=== PATIENT | male | born 1930 | race Caucasian/White ===

== ENCOUNTER 2017-07-03 17:00 | Emergency (ER) | payer MEDICARE ==
[2017-07-03 18:13] LABS: ABS Basophils 0 10^3/ul (0-0.2); ABS Eosinophils 0 10^3/ul (0-0.6); ABS Lymphocytes 2.1 10^3/ul (1.0-4.8); ABS Monocytes 0.5 10^3/ul (0-0.8); ABS Neutrophils 4.7 10^3/ul (1.5-7.7); ABS Nucleated RBC 0 10^3/ul; Eosinophil % 0.6 % (0-6); Hematocrit 33 % (42-52); Hemoglobin 11.2 g/dl (14.0-18.0); Lymphocyte % 28.3 % (25-47); Mean Corpuscular HGB Conc 34 g/dl (31-36); Mean Corpuscular Hemoglobin 29 pg (27-31); Mean Corpuscular Volume 84 fL (80-94); Mean Platelet Volume 8.1 um3 (7.4-10.4); Nucleated Red Blood Cells % 0; Platelet Count 185 10^3/ul (150-450); Red Blood Count 3.87 10^6/ul (4.0-5.4); Red Cell Distribution Width 15 % (10.5-15); White Blood Count 7.5 10^3/ul (3.5-10.8)
--- NOTE | 2017-07-03 18:27 | RAD ---
HISTORY: Shortness of breath COMPARISONS: July 26, 2015 VIEWS: 1: frontal portable view of the chest at 6:05 PM FINDINGS: LINES AND TUBES: A left-sided AICD pacemaker is noted. CARDIOMEDIASTINAL SILHOUETTE: The aorta is tortuous. The cardiomediastinal silhouette is otherwise normal for portable technique. PLEURA: The costophrenic angles are sharp. No pleural abnormalities are noted. LUNG PARENCHYMA: The lungs are clear. ABDOMEN: The upper abdomen is clear. There is no subphrenic gas. BONES AND SOFT TISSUES: The patient is status post median sternotomy. IMPRESSION: NO ACTIVE CARDIOPULMONARY DISEASE.
[2017-07-03 18:33] LABS: EGFR Non-African American 36.9 (>60)
[2017-07-03] MEDS ORDERED: Albuterol/Ipratropium NEB.SOL* Albuterol 2.5 MG/Ipratropium 0.5 MG 3 ML INH ONE ×2 (18:37→20:06)
[2017-07-03] MEDS ORDERED: methylPREDNISolone 125 MG* 2 ML VIAL IV ONE (18:37)
[2017-07-03] MEDS ORDERED: DOXYcycline CAP(*) 100 MG PO ONE (21:35)
[2017-07-03 22:26] VITALS: BP 109/71
--- NOTE | 2017-07-10 08:46 | ED ---
Freddy Sutton Jennifer, scribed for Christophe Ch MD on 07/03/17 at 1844 . Shortness of Breath - HPI Summary HPI Summary: The patient is an 87 year old male who was sent from [facility] for shortness of breath for the past 10 days. The patient has a history of asthma and was given Duoneb with minimal improvement at [facility]. The patient complains of his chest feeling clogged up, intermittent coughing for one week, exhaustion, wheezing, and weight loss in the last month. He reports his cough is productive and the sputum is an off-green color. The patient denies fever, sweats, chills, leg swelling, chest pain. - History of Current Complaint Chief Complaint: EDShortnessOfBreath Time Seen by Provider: 07/03/17 17:40 Hx Obtained From: Patient Onset/Duration: Sudden Onset, Lasting Days - 10 days, Still Present, Worse Since - nora Timing: Constant Current Severity: Mild Aggrevating Factors: Nothing Alleviating Factors: Nothing Associated Signs & Symptoms: Negative - Fever, sweats, chills, leg swelling, chest pain., Cough (Productive), Wheezing - Allergy/Home Medications Allergies/Adverse Reactions: Allergies Allergy/AdvReac Type Severity Reaction Status Date / Time MS Penicillins [Penicillins] Allergy Severe Rash Verified 09/08/15 18:33 MS Levofloxacin Allergy Unknown Verified 09/08/15 18:33 [From Levaquin] Reaction Details Home Medications: Home Medications Amiodarone TAB* [Cordarone TAB*] 200 mg PO DAILY 07/03/17 [History Confirmed 03/22] Aspirin TAB* [Aspirin 325 MG TAB*] 325 mg PO DAILY 07/03/17 [History Confirmed 07/03/17] Carvedilol TAB* [Coreg TAB*] 3.125 mg PO BID 07/03/17 [History Confirmed ] Cholecalciferol (Vitamin D3) [Vitamin D3] 2,000 unit PO DAILY 07/03/17 [History Confirmed 07/03/17] Ferrous Sulfate [Slow Fe] 45 mg PO DAILY 07/03/17 [History Confirmed 07/03/17] Folic Acid TAB* [Folvite TAB*] 5 mg PO DAILY 07/03/17 [History Confirmed ] Furosemide TAB* [Lasix TAB*] 40 mg PO DAILY 07/03/17 [History Confirmed 07/03/17 ] Levothyroxine TAB* [Synthroid TAB*] 50 mcg PO DAILY 07/03/17 [History Confirmed 07/03/17] Lisinopril TAB* [Prinivil TAB*] 20 mg PO DAILY 07/03/17 [History Confirmed 07/03] Multivitamins/Minerals TAB* [Theragran/minerals TAB*] 1 tab PO DAILY 07/03/17 [ History Confirmed 07/03/17] Vitamin B Complex CAP* [B Complex CAP*] 1 cap PO DAILY 07/03/17 [History Confirmed 07/03/17] traZODone TAB* [Desyrel TAB*] 50 mg PO BEDTIME PRN 07/03/17 [History Confirmed 07/03/17] PMH/Surg Hx/FS Hx/Imm Hx Endocrine/Hematology History: Reports: Hx Diabetes - borderline type 2 Cardiovascular History: Reports: Hx Auto Implanted Cardiovert Defib, Hx Hypertension, Hx Myocardial Infarction, Hx Pacemaker/ICD - 07/BATTERY REPLACED , Other Cardiovascular Problems/Disorders - CAD/BORDERLINE IDDM II/HIGH CHOLESTEROL Respiratory History: Reports: Hx Asthma GI History: Reports: Hx Gastroesophageal Reflux Disease History: Reports: Hx Benign Prostatic Hyperplasia - TURP 2007 Musculoskeletal History: Reports: Other Musculoskeletal History - knee problems Sensory History: Reports: Hx Contacts or Glasses, Hx Hearing Aid - bilateral Opthamlomology History: Reports: Hx Contacts or Glasses Psychiatric History: Reports: Hx Depression - Surgical History Surgery Procedure, Year, and Place: CABG- 1996. rotator cuff repair- 2009. 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 Negative: Fever, Chills Negative: Erythema Negative: Sore Throat Positive: Chest Pain - feels "clogged up" Positive: Shortness Of Breath, Cough - intermittent, Other - wheezing Negative: Abdominal Pain, Nausea Negative: dysuria, hematuria Negative: Myalgia, Edema Negative: Rash Neurological: Negative - Dizziness All Other Systems Reviewed And Are Negative: Yes Physical Exam - Summary Physical Exam Summary: Constitutional: Well-developed, Well-nourished, Alert. (-) Distressed Skin: Warm, Dry HENT: Normocephalic; Atraumatic Eyes: Conjunctiva normal Neck: Musculoskeletal ROM normal neck. (-) JVD, (-) Stridor, (-) Tracheal deviation Cardio: Rhythm regular, rate normal, Heart sounds normal; Intact distal pulses; The pedal pulses are 2+ and symmetric. Radial pulses are 2+ and symmetric. (-) Murmur Pulmonary/Chest wall: Inspiratory and expiratory wheezes, rhonchi, (-) Respiratory distress Abd: Soft, (-) Tenderness, (-) Distension, (-) Guarding, (-) Rebound Musculoskeletal: no trace pedal edema Lymph: (-) Cervical adenopathy Neuro: Alert, Oriented x3 Psych: Mood and affect Normal Triage Information Reviewed: Yes Vital Signs On Initial Exam: Initial Vitals Resp 16 07/03/17 17:08 Vital Signs Reviewed: Yes Diagnostics - Vital Signs Vital Signs Temp Pulse Resp BP Pulse Ox 07/03/17 18:09 70 20 160/72 99 07/03/17 18:00 76 18 99 07/03/17 17:39 70 23 127/62 98 07/03/17 17:10 97.9 F 70 24 143/79 99 07/03/17 17:09 16 143/79 07/03/17 17:08 16 - Laboratory Lab Results: Lab Results 07/03/17 07/03/17 07/03/17 Range/Units 18:01 18:01 18:01 WBC 7.5 (3.5-10.8) 10^3/ul RBC 3.87 L (4.0-5.4) 10^6/ul Hgb 11.2 L (14.0-18.0) g/dl Hct 33 L (42-52) % MCV 84 (80-94) fL MCH 29 (27-31) pg MCHC 34 (31-36) g/dl RDW 15 (10.5-15) % Plt Count 185 (150-450) 10^3/ul MPV 8.1 (7.4-10.4) um3 Neut % (Auto) 63.5 (38-83) % Lymph % (Auto) 28.3 (25-47) % Young % (Auto) 7.3 H (0-7) % Eos % (Auto) 0.6 (0-6) % Baso % (Auto) 0.3 (0-2) % Absolute Neuts (auto) 4.7 (1.5-7.7) 10^3/ul Absolute Lymphs (auto) 2.1 (1.0-4.8) 10^3/ul Absolute Monos (auto) 0.5 (0-0.8) 10^3/ul Absolute Eos (auto) 0 (0-0.6) 10^3/ul Absolute Basos (auto) 0 (0-0.2) 10^3/ul Absolute Nucleated RBC 0 10^3/ul Nucleated RBC % 0 Sodium 141 (139-145) mmol/L Potassium 4.0 (3.5-5.0) mmol/L Chloride 106 (101-111) mmol/L Carbon Dioxide 25 (22-32) mmol/L Anion Gap 10 (2-11) mmol/L BUN 34 H (6-24) mg/dL Creatinine 1.76 H (0.67-1.17) mg/dL Est GFR ( Amer) 47.5 (>60) Est GFR (Non-Af Amer) 36.9 (>60) BUN/Creatinine Ratio 19.3 (8-20) Glucose 93 (70-100) mg/dL Lactic Acid 0.9 (0.5-2.0) mmol/L Calcium 9.0 (8.6-10.3) mg/dL Total Bilirubin 0.40 (0.2-1.0) mg/dL AST 15 (13-39) U/L ALT 22 (7-52) U/L Alkaline Phosphatase 103 (34-104) U/L Troponin I 0.02 (<0.04) ng/mL Total Protein 6.7 (6.4-8.9) g/dL Albumin 3.9 (3.2-5.2) g/dL Globulin 2.8 (2-4) g/dL Albumin/Globulin Ratio 1.4 (1-3) Result Diagrams: 07/03/17 18:01 07/03/17 18:01 Lab Statement: Any lab studies that have been ordered have been reviewed, and results considered in the medical decision making process. - Radiology CXR Xray Interpretation: No Acute Changes - NO ACTIVE CARDIOPULMONARY DISEASE. Dr. Ch has reviewed this report. Radiology Interpretation Completed By: Radiologist - EKG 17:10 EKG Interpretation: no STEMI, T wave inversions in V5-V6 leads Re-Evaluation - Re-Evaluation First Eval Re-Evaluation Time: 20:13 Change: Unchanged Comment: No improvement in SOB. BNP is 190. Possible CHF due to history of CHF. Second Eval Re-Evaluation Time: 21:37 Change: Improved Comment: The patient now feels much better. He ambulated without difficulty. Stats in mid 90s. Lungs are now clear. Course/Dx - Course Course Of Treatment: The patient is an 87 year old male who was sent from [facility] for shortness of breath for the past 10 days. In the ED course the patient was given Duoneb and Solumedrol. Bloodwork was obtained. CXR and EKG were obtained. The patient told me he was diagnosed with COPD in [place]. His diagnosis today is COPD exacerbation. The patient is prescribed nebulizer treatment. He is instructed to follow up with PCP in 3 days. - Diagnoses Provider Diagnoses: COPD exacerbation Discharge - Sign-Out/Discharge Documenting (check all that apply): Discharge/Admit/Transfer - Discharge Plan Condition: Stable Disposition: HOME Prescriptions: Albuterol 2.5MG/3ML (0.083%)* [Ventolin 2.5 MG/3 ML NEB.ROLDAN*] 2.5 mg INH Q4H PRN #30 neb.roldan PRN Reason: Wheezing Albuterol HFA INHALER* [Ventolin HFA Inhaler*] 1 puff INH Q4H PRN #1 mdi PRN Reason: Cough DOXYcycline CAP(*) [DOXYcycline 100MG CAP(*)] 100 mg PO BID #14 cap Nebulizer and Compressor [Comp-Air Nebulizer System] 1 each MC ONCE #1 each predniSONE TAB* [Deltasone TAB*] 50 mg PO DAILY #5 tab Patient Education Materials: COPD (Chronic Obstructive Pulmonary Disease) (ED) Referrals: Omar River MD [Primary Care Provider] - 2 Days Additional Instructions: Follow up with your primary care physician in three days. RETURN TO THE EMERGENCY DEPARTMENT FOR CHANGING OR WORSENING SYMPTOMS. The documentation as recorded by the Freddy burrows Jennifer accurately reflects the service I personally performed and the decisions made by me, Christophe Ch MD.
== END 2017-07-03 22:25 | disposition home or self-care (01) ==
LOC: ED 17:00
DX: J44.1 Chronic obstructive pulmonary disease with (acute) exacerbation (principal); R53.83 Other fatigue; R07.9 Chest pain, unspecified; Z87.891 Personal history of nicotine dependence; R06.02 Shortness of breath
CPT/HCPCS: 36415; 71045; 80053; 83605; 83880; 84484; 85025; 87040; 93005; 99284; A9270-GY; J2930